=== PATIENT | male | born 1975 | race Caucasian/White ===

== ENCOUNTER 2017-06-27 12:40 | Emergency (ER) | payer BC ==
--- NOTE | 2017-06-27 14:56 | ED ---
Lower Extremity - HPI Summary HPI Summary: Patient is a 41-year-old male presenting to the ED with left posterior knee pain radiating to the left posterior thigh. Denies known injury. 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 Denies numbness, tingling, color or temperature changes. Denies any swelling. No pain in the calf, although he experiences this frequently while sleeping, describing them as "charley horses". Pain is described as aching, tight, aggravated by standing, alleviated by stretching. He denies any health history, takes no medications. Denies recent travel. He takes no anticoagulants. He has never had pain like this before, endorsing it at a 7 out of 10 pain. He was unable to ambulate this morning per due to the pain. Denies any shortness of breath, denies smoking history. - History of Current Complaint Chief Complaint: EDExtremityLower Stated Complaint: LEFT LEG PAIN Time Seen by Provider: 06/27/17 13:28 Hx Obtained From: Patient Onset of Pain: Immediate Onset/Duration: Hours Severity Initially: Moderate Severity Currently: Moderate Pain Intensity: 4 Pain Scale Used: 0-10 Numeric Location: Is Discrete @ - Left posterior knee Character Of Pain: Aching Associated Signs And Symptoms: Negative: Swelling, Redness, Bruising Aggravating Factor(s): Standing, Ambulation Alleviating Factor(s): Rest Related History: Occupational Injury - Risk Factors Gout Risk Factors: Negative DVT Risk Factors: Negative Septic Arthritis Risk Factor: Negative PMH/Surg Hx/FS Hx/Imm Hx Previously Healthy: Yes - Immunization History Date of Tetanus Vaccine: UTD Date of Influenza Vaccine: NO Infectious Disease History: No Infectious Disease History: Denies: Traveled Outside the [place] in Last 30 Days - Social History Occupation: Employed Full-time Lives: With Family Alcohol Use: Occasionally Hx Substance Use: Yes Substance Use Type: Reports: Marijuana Hx Tobacco Use: No Smoking Status (MU): Never Smoked Tobacco Review of Systems Constitutional: Negative Negative: Fever, Chills, Fatigue Eyes: Negative Cardiovascular: Negative Genitourinary: Negative Positive: no symptoms reported, see HPI Positive: Myalgia Skin: Negative Neurological: Negative All Other Systems Reviewed And Are Negative: Yes Physical Exam Triage Information Reviewed: Yes Vital Signs On Initial Exam: Initial Vitals Temp Pulse Resp BP Pulse Ox 97.2 F 96 16 137/77 98 06/27/17 13:21 06/27/17 13:21 06/27/17 13:21 06/27/17 13:21 06/27/17 13:21 Completion Of Physical Exam Limited Due To: Dementia Appearance: Positive: Well-Appearing, Well-Nourished Skin: Positive: Warm, Skin Color Reflects Adequate Perfusion, Other - No erythema, swelling to the posterior thigh Head/Face: Positive: Normal Head/Face Inspection Eyes: Positive: EOMI, SARMAD, Conjunctiva Clear Neck: Positive: Supple, No Lymphadenopathy Respiratory/Lung Sounds: Positive: Clear to Auscultation, Breath Sounds Present Cardiovascular: Positive: Normal, RRR, Pulses are Symmetrical in both Upper and Lower Extremities Musculoskeletal: Positive: Pain @ - Posterior thigh. Negative: Cary Sign Left , Cary Sign Right Neurological: Positive: Speech Normal Psychiatric: Positive: Affect/Mood Appropriate AVPU Assessment: Alert Diagnostics - Vital Signs Vital Signs Temp Pulse Resp BP Pulse Ox 06/27/17 13:21 97.2 F 96 16 137/77 98 - Laboratory Lab Statement: Any lab studies that have been ordered have been reviewed, and results considered in the medical decision making process. Lower Extremity Course/Dx - Course Course Of Treatment: During the course of treatment, the patient is evaluated for left posterior knee pain radiating into the left posterior thigh without calf involvement. Denies any travel or smoking history. Denies known malignancy. He has a low risk for PE/DVT. Endorses back pain last week which has since resolved, often radiating to the buttocks with piriformis syndrome, but never has had pain to the left posterior thigh or knee. He denies color or temperature changes. Homans sign negative on physical exam. Denies swelling. Discussed muscle strain, which is the most likely diagnosis, however I cannot rule out a DVT. Ultrasound of the left posterior knee and thigh obtained. No evidence of DVT. Likely muscle strain versus pinched nerve. Although patient denies paresthesias. He states he is unable to ambulate, but is bearing weight well. He is requesting crutches. I have given him crutches, instructions to use moist heat and ibuprofen and he will follow-up with orthopedics if symptoms persist or worsen. - Diagnoses Differential Diagnosis/HQI/PQRI: Positive: Sprain, Strain, Other - DVT Provider Diagnoses: Posterior left knee pain Discharge - Discharge Plan Condition: Stable Disposition: HOME Patient Education Materials: Muscle Strain (ED) Forms: *Work Release Referrals: Mike Loving MD [Primary Care Provider] - Neil Beendict MD [Medical Doctor] - Additional Instructions: Ibuprofen 600 mg 3 times daily Moist heat to the area Massage Magnesium Glycinate 400mg before bed You can also get this in the form of [place] nuts or dark chocolate This will help with any "charley horse" No evidence of a blood clot If this nerve pain continues or fails to improve, please follow up with an orthopedic surgeon I have given your referral
--- NOTE | 2017-06-27 15:06 | RAD ---
HISTORY: Left posterior knee pain COMPARISONS: None relevant TECHNIQUE: Multiple transverse and longitudinal ultrasound images were obtained of the left lower extremity from the level of the common femoral vein inferiorly through to the infrapopliteal veins using grayscale, color Doppler, and spectral Doppler imaging with and without compression and with augmentation. Comparison images were obtained of the contralateral common femoral vein. FINDINGS: VEINS: The venous system of the left lower extremity is compressible throughout its course, with normal flow on color Doppler imaging and normal response to augmentation on spectral Doppler imaging. SOFT TISSUES: Unremarkable. OTHER FINDINGS: There is no sonographic abnormality in the area of pain. IMPRESSION: NO LEFT LOWER EXTREMITY DEEP VEIN THROMBOSIS
[2017-06-27 16:06] VITALS: BP 131/78
== END 2017-06-27 15:55 | disposition home or self-care (01) ==
LOC: ED 12:40
DX: M25.562 Pain in left knee (principal)
CPT/HCPCS: 99282